=== PATIENT | male | born 1965 | race Native Hawaiian/Other Pacific Islander ===

== ENCOUNTER 2022-03-30 12:47 | Emergency (ER) | payer OTHER ==
[~2022-03-30] VITALS: Ht 182.9 cm; Wt 81.6 kg
[2022-03-30 12:51] VITALS: TEMP 97.4
[2022-03-30 14:21] VITALS: BP 126/86
== END 2022-03-30 14:41 | disposition home or self-care (01) ==
LOC: ED 12:47
PROC: 0HQ1XZZ Repair Face Skin, External Approach (ICD-10-PCS; principal; 2022-03-30)
DX: S20.224A Contusion of middle back wall of thorax, initial encounter (principal); S63.592A Other specified sprain of left wrist, initial encounter; S01.412A Laceration without foreign body of left cheek and temporomandibular area, initial encounter; S40.212A Abrasion of left shoulder, initial encounter; V54.5XXA Driver of pick-up truck or van injured in collision with heavy transport vehicle or bus in traffic accident, initial encounter; Y92.89 Other specified places as the place of occurrence of the external cause
CPT/HCPCS: 90471; 90715; 99283

== ENCOUNTER 2022-12-07 17:26 | Emergency (ER) | payer OTHER ==
[~2022-12-07] VITALS: Ht 182.9 cm; Wt 81.6 kg
[2022-12-07 19:58] LABS: PLATELET COUNT 462 K/uL (142-355)
[2022-12-07 20:06] LABS: POTASSIUM 4.3 mmol/L (3.6-5.2)
[2022-12-07 21:35] VITALS: BP 131/77; TEMP 97.1
== END 2022-12-07 21:40 | disposition home or self-care (01) ==
LOC: ED 17:26
PROVIDERS: Emergency Medicine
DX: K57.32 Diverticulitis of large intestine without perforation or abscess without bleeding (principal); K40.90 Unilateral inguinal hernia, without obstruction or gangrene, not specified as recurrent
CPT/HCPCS: 80053; 81000; 85027; 99283; Q9963